=== PATIENT | female | born 1995 | race Caucasian/White ===

== ENCOUNTER 2022-05-08 16:52 | Outpatient (CLI) | payer OTHER ==
[2022-05-08] MEDS ORDERED: PRENATAL TABLE1 EAC1 PO (21:06)
[2022-05-08] MEDS ORDERED: PEPCID AC20 MG PO (21:07)
== END 2022-05-08 18:23 | disposition home or self-care (01) ==
LOC: NST 16:52
PROVIDERS: ATTEND Obstetrics & Gynecology
DX: Z34.83 Encounter for supervision of other normal pregnancy, third trimester (principal)

== ENCOUNTER 2022-05-08 18:29 | Inpatient (IN) | payer OTHER ==
[~2022-05-08] VITALS: Ht 165.1 cm; Wt 87.1 kg
[2022-05-08] MEDS ORDERED: PRENATAL TABLE1 EAC1 PO (21:06)
[2022-05-08] MEDS ORDERED: PEPCID AC20 MG PO (21:07)
== END 2022-05-10 09:57 | disposition home or self-care (01) | DRG 833 ==
LOC: LDR 18:29 → OB/GYN 18:29
PROVIDERS: ADMIT Obstetrics & Gynecology; ATTEND Obstetrics & Gynecology
PROC: 4A1HXCZ Monitoring of Products of Conception, Cardiac Rate, External Approach (ICD-10-PCS; principal; 2022-05-08)
DX: O60.03 Preterm labor without delivery, third trimester (principal); Z3A.35 35 weeks gestation of pregnancy; Z20.822 Contact with and (suspected) exposure to COVID-19